=== PATIENT | female | born 1955 | race Caucasian/White ===

== ENCOUNTER 2017-08-05 10:52 | Outpatient (CLI) | payer MEDICARE ==
[~2017-08-05 10:52] MED LIST: FERRIC CARBOXYMALTOSE 750 MG in NORMAL SALINE 250 ML IV PRN; NORMAL SALINE 250 ML IV PRN
[2017-08-05 11:44] VITALS: BP 136/70
== END 2017-08-05 11:45 | disposition home or self-care (01) ==
LOC: II 10:52 → 5TH 11:01 → II 11:45
PROVIDERS: ATTEND Internal Medicine
PROC: 3E033GC Introduction of Other Therapeutic Substance into Peripheral Vein, Percutaneous Approach (ICD-10-PCS; principal; 2017-08-05)
DX: D50.9 Iron deficiency anemia, unspecified (principal)
CPT/HCPCS: 96365; J7050; J1439

== ENCOUNTER 2017-08-12 10:54 | Outpatient (CLI) | payer MEDICARE ==
[2017-08-12 11:43] VITALS: BP 138/80
== END 2017-08-12 11:48 | disposition home or self-care (01) ==
LOC: II 10:54 → 5TH 10:57 → II 11:48
PROVIDERS: ATTEND Internal Medicine
PROC: 3E033GC Introduction of Other Therapeutic Substance into Peripheral Vein, Percutaneous Approach (ICD-10-PCS; principal; 2017-08-12)
DX: D50.8 Other iron deficiency anemias (principal); K90.9 Intestinal malabsorption, unspecified
CPT/HCPCS: 96367; J7050; J1439; 96374

== ENCOUNTER 2017-08-21 06:53 | Day surgery (SDC) | payer MEDICARE ==
[2017-08-21] MEDS ORDERED: MIDAZOLAM 2 MG/2 ML INJ ONE ×2 (07:10→08:18)
[2017-08-21] MEDS ORDERED: FENTANYL CITRATE INJ/PF 100 MCG/2 ML AMPUL ONE (07:11)
[2017-08-21] MEDS: TETRACAINE HCL 0.5% OPH SOLN 2 ML OD PRN ×3 (07:15→08:01)
[2017-08-21] MEDS: CYCLOPENTOLATE 0.2%/PHENYLEPHRINE 1% OPH SOLN 2 ML OD PRN ×3 (07:16→07:43)
[2017-08-21] MEDS: TROPICAMIDE 1% OPH SOLN 3 ML OD PRN ×3 (07:16→07:43)
[2017-08-21] MEDS: BESIFLOXACIN HCL 0.6% OPH SUSP 5 ML BOTTLE OD PRN ×4 (07:17→08:26)
[2017-08-21] MEDS: KETOROLAC TROMETHAMINE 0.45% 4 DROP/0.4 ML DROPERETTE OD PRN ×2 (07:17→08:56)
[2017-08-21] MEDS ORDERED: EPINEPHRINE INJ/PF 1 MG/1 ML AMPULE ONE (07:21)
[2017-08-21] MEDS ORDERED: LIDOCAINE 1% INJ-PF (10 MG/ML) 30 ML SDV ONE (07:21)
[2017-08-21] MEDS ORDERED: CHONDR SU A NA/HYALUR INTRAOC KIT (SURGICARE) ONE (07:21)
--- NOTE | 2017-08-21 20:32 | [facility] OPERATIVE REPORT E ---
[facility] NAME: HEAVEN WALKER AGE: 62Y DATE OF SURGERY: 08/21/2017 ROOM: PREOPERATIVE DIAGNOSES: 1. Cataract, right eye. 2. Pupil miosis, right eye. POSTOPERATIVE DIAGNOSES: 1. Cataract, right eye. 2. Pupil miosis, right eye. OPERATION: Complex cataract extraction with use of a Malyugin ring due to poor pupillary dilation. SURGEON: DARIA OZUNA M.D. ANESTHESIA: Topical. PROCEDURE: After obtaining appropriate consent, the patient's left eye was prepped and draped in sterile fashion as well as the surgeon in a sterile manner and cataract surgery was started. First a paracentesis blade was used to make a small side-port incision. Viscoelastic was used to inflate the anterior chamber. Next a 2.4 mm incision was made with the paracentesis blade. A continuous capsulorrhexis incision was made using a cystotome and Utrata forceps. Following this hydrodissection was carried out to make the lens fully loose and mobile and it was rotated 90 degrees. Following this, a ylmkgf-tld-vocqggz technique was used to phacoemulsify the lens with a CDE of 10.01. The remaining cortex was removed with irrigation/aspiration. Provisc was instilled into the capsular bag to inflate the bag. A SN60WF, 23.0 diopter lens was placed. The remaining viscoelastic material was removed with irrigation/aspiration. Following this, a 10-0 nylon suture was used to close the incision and it was found to be watertight. Vigamox was instilled in the eye and a protective shield was placed over the eye. The patient returned to the postoperative recovery in stable condition. Prior to making the capsulorhexis, a Malyugin ring was inserted due to poor pupillary dilation; this was removed at the end of the case. DICTATING PHYSICIAN: DARIA OZUNA M.D. [id number] PHY#: [id number] 2017 ID: [id number] JOB#: [id number] ACCT: [id number] cc:DARIA OZUNA M.D. > [facility]
--- NOTE | 2017-08-21 20:37 | DISCHARGE SUMMARY E ---
Discharge Summary NAME: HEAVEN WALKER : 1955 AGE: 62Y ADMITTED: 08/21/2017 DISCHARGED: 08/21/2017 HISTORY OF PRESENT ILLNESS AND HOSPITAL COURSE: This is a 62-year-old patient who underwent complex cataract extraction of the right eye. DIAGNOSES: 1. Cataract, right eye. 2. Pupils miosis, right eye, making this a complex cataract extraction with use of a Malyugin ring and poor pupillary dilation. HOSPITAL COURSE: She underwent surgery because she was having difficulty to driving at night secondary to glare from headlights. DISCHARGE INSTRUCTIONS: 1. She should use her Besivance, Ilevro, and Durezol at 3 p.m. and 8 p.m. and sleep with a rigid shield. 2. I will see her for her one-day postoperative tomorrow. DICTATING PHYSICIAN: DARIA OZUNA M.D. [id number] PHY#: [id number] 2017 ID: [id number] JOB#: [id number] ACCT: [id number] cc:DARIA OZUNA M.D. >
== END 2017-08-21 09:10 | disposition home or self-care (01) ==
LOC: SC 06:53
PROVIDERS: ATTEND Internal Medicine
PROC: 08RJ3JZ Replacement of Right Lens with Synthetic Substitute, Percutaneous Approach (ICD-10-PCS; principal; 2017-08-21 08:00)
DX: H25.13 Age-related nuclear cataract, bilateral (principal); H57.03 Miosis; H40.013 Open angle with borderline findings, low risk, bilateral; H04.123 Dry eye syndrome of bilateral lacrimal glands; Z79.899 Other long term (current) drug therapy; Z88.0 Allergy status to penicillin; Z88.8 Allergy status to other drugs, medicaments and biological substances; M19.90 Unspecified osteoarthritis, unspecified site; M79.7 Fibromyalgia; F41.9 Anxiety disorder, unspecified
CPT/HCPCS: 66982; V2632; J2250; J3490 ×2; A9270; J0171; J3010; 142

== ENCOUNTER 2017-09-11 08:49 | Day surgery (SDC) | payer MEDICARE ==
[~2017-09-11 08:49] MED LIST changes: +CHONDR SU A NA/HYALUR INTRAOC KIT (SURGICARE) ONE; -FERRIC CARBOXYMALTOSE 750 MG in NORMAL SALINE 250 ML IV PRN; +LIDOCAINE 1% INJ-PF (10 MG/ML) 30 ML SDV ONE; -NORMAL SALINE 250 ML IV PRN; +PHENYLEPHRINE/KETOROLAC 1%-0.3% 4 ML VIAL ONE
[2017-09-11] MEDS: TETRACAINE HCL 0.5% OPH SOLN 2 ML OS PRN ×3 (09:11→09:37)
[2017-09-11] MEDS: TROPICAMIDE 1% OPH SOLN 3 ML OS PRN ×3 (09:11→09:29)
[2017-09-11] MEDS: CYCLOPENTOLATE 0.2%/PHENYLEPHRINE 1% OPH SOLN 2 ML OS PRN ×3 (09:11→09:29)
[2017-09-11] MEDS: KETOROLAC TROMETHAMINE 0.45% 4 DROP/0.4 ML DROPERETTE OS PRN ×2 (09:12→10:38)
[2017-09-11] MEDS: BESIFLOXACIN HCL 0.6% OPH SUSP 5 ML BOTTLE OS PRN ×3 (09:12→10:00)
[2017-09-11] MEDS ORDERED: FENTANYL CITRATE INJ/PF 100 MCG/2 ML AMPUL ONE (09:19)
[2017-09-11] MEDS ORDERED: MIDAZOLAM 2 MG/2 ML INJ ONE (09:19)
--- NOTE | 2017-09-12 08:17 | [facility] OPERATIVE REPORT E ---
[facility] Operative Report NAME: HEAVEN WALKER AGE: 62Y DATE OF SURGERY: 09/11/2017 ROOM: PREOPERATIVE DIAGNOSIS: CATARACT, LEFT EYE. POSTOPERATIVE DIAGNOSIS: CATARACT, LEFT EYE. OPERATION: Cataract extraction with intraocular lens implant of the left eye. SURGEON: DARIA OZUNA M.D. ANESTHESIA: Topical. PROCEDURE: After obtaining appropriate consent, the patient's left eye was prepped and draped in sterile fashion as well as the surgeon in a sterile manner and cataract surgery was started. First a paracentesis blade was used to make a small side-port incision. Viscoelastic was used to inflate the anterior chamber. Next a 2.4 mm incision was made with the paracentesis blade. A continuous capsulorrhexis incision was made using a cystotome and Utrata forceps. Following this hydrodissection was carried out to make the lens fully loose and mobile and it was rotated 90 degrees. Following this, a jlspic-dog-sphlhup technique was used to phacoemulsify the lens with a CDE of 6.27. The remaining cortex was removed with irrigation/aspiration. Provisc was instilled into the capsular bag to inflate the bag. A SN60WF, 23.0 diopter lens was placed. The remaining viscoelastic material was removed with irrigation/aspiration. Following this, a 10-0 nylon suture was used to close the incision and it was found to be watertight. Vigamox was instilled in the eye and a protective shield was placed over the eye. The patient returned to the postoperative recovery in stable condition. DICTATING PHYSICIAN: DARIA OZUNA M.D. [id number] PHY#: [id number] ID: [id number] JOB#: [id number] ACCT: [id number] cc:DARIA OZUNA M.D. >
--- NOTE | 2017-09-12 08:22 | [facility] DISCHARGE SUMMARY E ---
[facility] Discharge Summary NAME: HEAVEN WALKER AGE: 62Y ADMITTED: 09/11/2017 DISCHARGED: 09/11/2017 HISTORY: This is a 62-year-old female who underwent cataract extraction of the left eye. DIAGNOSIS: Cataract, left eye. HOSPITAL COURSE: She underwent surgery because she was having difficulty driving at night secondary to glare from headlights. DISCHARGE INSTRUCTIONS: She should be on a regular diet. No bending at her waist, no heavy lifting. She should use her Besivance, Ilevro, and Durezol at 3 p.m. and 8 p.m. and sleep with a rigid shield, and I will see her for one day postoperative tomorrow. DICTATING PHYSICIAN: DARIA OZUNA M.D. [id number] PHY#: [id number] ID: [id number] JOB#: [id number] ACCT: [id number] cc:DARIA OZUNA M.D. >
== END 2017-09-11 10:59 | disposition home or self-care (01) ==
LOC: SC 08:49
PROVIDERS: ATTEND Internal Medicine
PROC: 08RK3JZ Replacement of Left Lens with Synthetic Substitute, Percutaneous Approach (ICD-10-PCS; principal; 2017-09-11 10:00)
DX: H25.12 Age-related nuclear cataract, left eye (principal); H57.03 Miosis; Z96.1 Presence of intraocular lens; M79.7 Fibromyalgia; Z79.899 Other long term (current) drug therapy
CPT/HCPCS: 66984; V2632; J2250; J3490 ×2; A9270; J3010; C9447; 142

== ENCOUNTER → 2017-12-19 | Outpatient (CLI) | payer MEDICARE ==
--- NOTE | 2017-12-19 15:06 | RADIOLOGY REPORT (SQ) ---
EXAM DESCRIPTION: CHEST PA/LATERAL COMPLETED DATE/TIME: 12/19/2017 2:31 pm REASON FOR STUDY: COUGH COMPARISON: 06/14/2016. EXAM PARAMETERS: NUMBER OF VIEWS: two views TECHNIQUE: Digital Frontal and Lateral radiographic views of the chest acquired. RADIATION DOSE: NA LIMITATIONS: none FINDINGS: LUNGS AND PLEURA: No opacities, masses or pneumothorax. No pleural effusion. MEDIASTINUM AND HILAR STRUCTURES: No masses or contour abnormalities. HEART AND VASCULAR STRUCTURES: Heart normal size. No evidence for failure. BONES: No acute findings. HARDWARE: None in the chest. OTHER: No other significant finding. IMPRESSION: NO SIGNIFICANT RADIOGRAPHIC FINDING IN THE CHEST. TECHNICAL DOCUMENTATION: JOB ID: [id number] [employer]- All Rights Reserved
== END ==
LOC: OD 14:17
PROVIDERS: ATTEND Nurse Practitioner Family
DX: R05 Cough (principal)
CPT/HCPCS: 71046

== ENCOUNTER → 2018-02-10 | Outpatient (CLI) | payer MEDICARE ==
--- NOTE | 2018-02-10 14:03 | RADIOLOGY REPORT (SQ) ---
EXAM DESCRIPTION: NM 3 PHASE BONE SCAN COMPLETED DATE/TIME: 02/10/2018 1:53 pm REASON FOR STUDY: SACROCOCCYGEAL DISORDERS, NOT ELSEWHERE CLASSIFIED M53.3 SACROCOCCYGEAL DISORDERS , NOT ELSEWHERE CLASSIFIED COMPARISON: No available imaging studies for comparison. RADIONUCLIDE AND DOSE: 21.8 millicuries Tc99m MDP. The route of agent administration: Intravenous. ADDITIONAL DRUGS AND DOSES: None. TECHNIQUE: Following injection of the radiopharmaceutical, serial blood flow images acquired. Equil ibrium blood pool images then acquired. Routine delayed images at 3 hour acquired of the areas of cl inical concern with additional focused images as needed. AREA OF INTEREST: Coccyx and sacrum. LIMITATIONS: None. FINDINGS: VASCULAR FLOW IMAGES: No asymmetry or focal areas of hyperemia. BLOOD POOL IMAGES: Increased uptake in the coccyx. BONES: Increased uptake in the coccyx. KIDNEYS: Kidneys not imaged. OTHER: No other significant finding. IMPRESSION: Fracture or osteomyelitis in the coccyx. COMMENT: Quality measure 147: No available prior imaging studies for comparison TECHNICAL DOCUMENTATION: JOB ID: [id number] [employer]- All Rights Reserved Reading location - IP/workstation name: [email or web address]
== END ==
LOC: RAD 09:15
PROVIDERS: ATTEND Family Medicine
DX: M53.3 Sacrococcygeal disorders, not elsewhere classified (principal)
CPT/HCPCS: 78315; A9561; Q9969

== ENCOUNTER → 2018-05-22 | Outpatient (CLI) | payer MEDICARE ==
--- NOTE | 2018-05-25 07:13 | RADIOLOGY REPORT (SQ) ---
EXAM DESCRIPTION: MRI PELVIS COMBO COMPLETED DATE/TIME: 05/22/2018 7:56 pm REASON FOR STUDY: M53.3 SACROCOCCYGEAL DISORDERS, NOT ELSEWHERE CLASSIFIED M53.3 SACROCOCCYGEAL DIS ORDERS, NOT ELSEWHERE CLASSIFIED fell and injured tail bone 3 months ago, persistent lower lumbar/sac ral pain COMPARISON: Bone scan 02/10/2018 TECHNIQUE: Multiplanar multisequence imaging performed without and with contrast including axial, sa gittal and coronal T2, axial T, axial gradient fat sat T1, axial, sagittal and coronal fat sat T2 pos t contrast. CONTRAST TYPE AND DOSE: 20 mL Prohance. RENAL FUNCTION: Estimated GFR 59 LIMITATIONS: None. FINDINGS: An L5 upper endplate less than 25% subacute compression deformity is present, with a band of edema and enhancement paralleling the upper endplate of the L5 vertebral body. This is best shown on coronal image 30 and axial images 14-17. There is a band of edema and enhancement along the right sacrum at the S1-S2 level along the right sa cral ala, paralleling the right SI joint. This likely represents a subacute incomplete insufficiency fracture, and is best shown on coronal images 32-36, and axial images 20-25. At the sacrococcygeal junction, there is a bandlike area of increased stir/contrast-enhancement, like ly a subacute transverse nondisplaced subacute fracture at the S5 level. No other fractures are identified in the field of view. BLADDER AND URETHRA: No focal bladder wall thickening or nodularity. Smooth mucosa. The urethra has smooth contour with no focal asymmetry. No abnormal enhancement. No focal lesions. PELVIC SOFT TISSUES: Normal. No masses. UTERUS: Surgically absent RIGHT OVARY: Surgically absent LEFT OVARY: Surgically absent FREE FLUID: None. PELVIC SKELETAL STRUCTURES: As above EXTRA PELVIS SOFT TISSUES: No masses. OTHER: No other significant finding. IMPRESSION: Less than 25% upper endplate L5 compression deformity Incomplete right sacral insufficiency fracture at the S1-2 level Nondisplaced transverse fracture, distal sacrum at the S5 level. TECHNICAL DOCUMENTATION: JOB ID: [id number] [employer]- All Rights Reserved Reading location - IP/workstation name: [email or web address]
== END ==
LOC: RAD 19:03
PROVIDERS: ATTEND Surgery
DX: M53.3 Sacrococcygeal disorders, not elsewhere classified (principal)
CPT/HCPCS: 82565; 72197; A9576

== ENCOUNTER → 2019-09-04 | Outpatient (CLI) | payer MEDICARE, OTHER ==
--- NOTE | 2019-09-04 11:24 | RADIOLOGY REPORT (SQ) ---
EXAM DESCRIPTION: MRI RT LOWER JOINT WITHOUT COMPLETED DATE/TIME: 09/04/2019 10:11 am REASON FOR STUDY: (17.11)UNILATERAL PRIMARY OSTEOARTHRITIS, RIGHT KNEE M17.11 UNILATERAL PRIMARY OS TEOARTHRITIS, RIGHT KNEE COMPARISON: None. TECHNIQUE: Rightknee images acquired and stored on PACS. Multiplanar images include fat sensitive s equences as T1, water sensitive sequences as FST2 or STIR, cartilage sensitive sequences as FSPD, and gradient echo sequences. LIMITATIONS: None. FINDINGS: JOINT AND BURSAE: Minimal subcutaneous anterior knee edema without drainable fluid. No si gnificant joint effusion. BONE CORTEX AND MARROW: No alteration of signal to suggest marrow replacement. No worrisome bone lesi ons. No occult fracture. ACL: Suspect mild degenerative signal. Major fiber bundles intact. PCL: Mild degenerative signal. No tear. MCL: Intact. No periligamentous edema or fluid. LCL: Intact. No periligamentous edema or fluid. MEDIAL MENISCUS: Minimally extruded but no discrete tear appreciated. LATERAL MENISCUS: Mild degenerative signal without significant tear. MEDIAL COMPARTMENT: Irregular chondral thinning with mild subchondral cysts in the tibia particularly . LATERAL COMPARTMENT: Similar findings to the medial compartment. PATELLA: Chondromalacia patella. Irregular diffuse chondral thinning with subchondral edema and cyst s. Lesser changes on the femoral side of the joint. EXTENSOR MECHANISM: Intact. Quadriceps and patella tendons normal. SOFT TISSUES: Adjacent muscles and subcutaneous tissues normal. Normal flow void in popliteal artery and vein. OTHER: No other significant finding. IMPRESSION: 1. Chondromalacia patella. 2. Mediolateral compartment mild chondromalacia. 3. Cruciate and collateral ligaments intact. No suggestion of significant meniscus tear. TECHNICAL DOCUMENTATION: JOB ID: [id number]- All Rights Reserved Reading location - IP/workstation name: [email or web address]
== END ==
LOC: RAD 09:12
PROVIDERS: ATTEND Orthopaedic Surgery
DX: M17.11 Unilateral primary osteoarthritis, right knee (principal); M22.41 Chondromalacia patellae, right knee